=== PATIENT | female | born 1950 | race Caucasian/White ===

== ENCOUNTER 2016-07-17 10:20 | Emergency (ER) | payer BC ==
[~2016-07-17] VITALS: Ht 162.6 cm; Wt 70.3 kg
[2016-07-17 11:02] LABS: BASOPHILS 0.6 % (0.0-2.0); EOSINOPHILS 2.9 % (0.0-3.0); HEMATOCRIT 37.3 % (37.0-47.0); HEMOGLOBIN 12.7 gm/dL (12.0-15.0); LYMPHOCYTES 25.6 % (24.0-44.0); MANUAL DIFF NO; MCHC 34.1 g/dL (28.0-37.0); MCV 96.8 fL (80.0-100.0); MONOCYTES 10.8 % (1.0-8.0); PLATELET COUNT 194 thou/uL (150-400); POLYS 60.1 % (36.0-66.0); RBC 3.86 mil/uL (4.20-5.00); RDW 13.4 % (10.5-14.5)
[2016-07-17] MEDS ORDERED: DILANTIN100 MG PO (11:06)
[2016-07-17] MEDS ORDERED: KEPPRA 500 MG500 M1 PO (11:06)
[2016-07-17] MEDS ORDERED: EFFEXOR XR75 MG PO (11:07)
[2016-07-17] MEDS ORDERED: MOBIC7.5 MG PO (11:07)
[2016-07-17] MEDS ORDERED: VICODIN 5-3001 EACH PO (11:08)
[2016-07-17] MEDS ORDERED: AMBIEN5 MG PO (11:09)
[2016-07-17] MEDS ORDERED: XANAX 0.5 MG0.5 MG PO (11:09)
[2016-07-17 11:13] LABS: CALCIUM 9.3 mg/dL (8.5-10.1); CREATININE 0.7 mg/dL (0.6-1.0); POTASSIUM 4.3 mmol/L (3.5-5.1)
[2016-07-17] MEDS ORDERED: BACTRIM DS TAB1 EACH PO (12:16)
[2016-07-17] MEDS ORDERED: NORCO 5-325 TA1 EACH PO (12:16)
[2016-07-17 12:46] VITALS: BP 138/75
[2016-07-18] MEDS ORDERED: MIRTAZAPINE15 M2 PO (19:59)
== END 2016-07-17 12:52 | disposition home or self-care (01) ==
LOC: ER 10:20
PROVIDERS: Emergency Medicine
DX: L03.032 Cellulitis of left toe (principal); Z88.1 Allergy status to other antibiotic agents; Z88.8 Allergy status to other drugs, medicaments and biological substances

== ENCOUNTER 2016-07-18 08:45 | Inpatient (IN) | payer BC ==
[~2016-07-18] VITALS: Ht 162.6 cm; Wt 68.0 kg
--- NOTE | ~2016-07-18 | O ---
[facility] [place] [address] OPERATIVE REPORT Name: LATOYAABBY Abelardo Room #: 420-P [facility] IN .R.#: [id number] Admission: 07/18/16 Attend Phys: Brielle Adorno Discharge: Date of : 54 Report #: [id number] THIS REPORT FOR: //name// CC: Brielle WHITFIELD WILDER DATE OF SERVICE: 07/21/2016 PRE-PROCEDURE DIAGNOSIS: Left great toe paronychia. POST-PROCEDURE DIAGNOSIS: Left great toe paronychia. PROCEDURE: I and D, left great toe paronychia. SURGEON: Abdullahi Ba M.D. TRANSMISSION SPECIALIST: Oralia Ortega PA-C. ANESTHESIA: Local digital nerve block with 1% lidocaine without epinephrine. FINDINGS: There was purulence in the left great toe. SPECIMENS: Cultures were sent times 2. POST-PROCEDURE CONDITION: Stable. INDICATIONS FOR PROCEDURE: The patient is a 66-year-old female who had an ingrown toenail and had part of her toenail removed last Monday. She has had increasing redness and erythema around the toe and increasing pain and has been admitted secondary to cellulitis and paronychia. She had signs and symptoms consistent with this and was tender at the base of her nail and significant erythema. She has been started on vancomycin with minimal relief of symptoms. After discussion with her, she elected for a bedside I and D of her left great toe. DESCRIPTION OF PROCEDURE: Risks, benefits, alternatives and complications were discussed in detail with the patient, including but not limited to risk of the local anesthesia, risk of need for a more formal surgical procedure if this fails. Informed consent was obtained from the patient and the left great toe was identified. Timeout was performed, properly identifying the patient, procedure and instrumentation. The first webspace and the medial aspect of the toe were then prepped with Betadine and 1 % lidocaine was injected in these areas, performing a digital nerve block. After this, the remainder of the toe was prepped with Betadine and a 15 blade was used to elevate the off the base of the remaining toenail. There was obvious purulence drained from both medial and lateral aspects of the base of the toenail. Cultures of this were [facility] [address] [place] [address] OPERATIVE REPORT Name: ABBY KLEIN Abelardo Room #: 420-P [facility] IN .R.#: [id number] Admission: 07/18/16 Attend Phys: Brielle Adorno Discharge: Date of : 54 Report #: [id number] taken times 2. This area was then thoroughly irrigated with normal saline washes and dressed with 4 x 4s and Coban. The patient tolerated the procedure well. We will continue her on antibiotics and follow up with her cultures. She is to be weightbearing as tolerated on the left lower extremity in a postop shoe. <ELECTRONICALLY SIGNED> By: Abdullahi Ba MD 07/22/16 08 1100 1151 Abdullahi Ba MD /kat
--- NOTE | ~2016-07-18 | HC ---
[facility] [place] [address] CONSULTATION Name: ABBY KLEIN Room #: 420-P [facility] IN M.R.#: [id number] Admission: 07/18/16 Attend Phys: Brielle Adorno Discharge: Date of : 54 Report #: [id number] THIS REPORT FOR: //name// CC: Brielle WILDER DATE OF SERVICE: 07/20/2016 ATTENDING PHYSICIAN: Brielle Adorno MD. REASON FOR CONSULTATION: Persistent big toe cellulitis. HISTORY OF PRESENT ILLNESS: A 66-year-old white woman undergoes ingrown toenail surgery last week. She develops increasing pain, redness of the left big toe, visits to the Emergency Room, fails to respond to oral antibiotic. She is admitted. She developed some pressure type lesion of the foot. Orthopedic and ID consultation requested. 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 The patient developed some weakness, left side and fracture, left knee secondary to a fall. DRUG ALLERGIES: None listed. MEDICATIONS: The patient is on treatment with cefazolin 1 gram IV every 8 hours, meloxicam, venlafaxine, mirtazapine, levetiracetam, enoxaparin, phenytoin, zolpidem tartrate, alprazolam, hydrocodone p.r.n., acetaminophen p.r.n. FAMILY HISTORY: See H and P. REVIEW OF SYSTEMS: As above. PHYSICAL EXAMINATION: GENERAL: Well-developed woman. VITAL SIGNS: Temperature maximum 99.9, pulse 80, respirations 18, BP 107/53. HEENMT: Head normocephalic, atraumatic. Pupils reactive. Mouth: No thrush. No periodontal disease. NECK: Supple. LUNGS: Clear. BREASTS: Deferred. HEART: S1, S2. No gallop. ABDOMEN: Soft, no masses or megaly. EXTREMITIES: Redness of the big toe and point tenderness, left big toe; cellulitic changes, distal left foot status post nail avulsion both big [facility] [address] [place] [address] CONSULTATION Name: ABBY KLEIN Room #: 420-P [facility] IN ..#: [id number] Admission: 07/18/16 Attend Phys: Brielle Adorno Discharge: Date of : 54 Report #: [id number] toenails. LABORATORY DATA: Blood cultures are negative so far, sodium 139, potassium 3.9, BUN 10, creatinine 0.7. WBC 10.6, hemoglobin 10.6, platelets 153,000. ASSESSMENT: 1. Cellulitis, left big toe, status post ingrown left big toenail surgery. 2. History of right brain tumor status post surgery in 2004. 3. Seizure disorder. SUGGESTIONS: Recommend MRSA screen. ESR. Discontinue cefazolin. Vancomycin 1250 mg IV every 12 hours, cefepime 1 gram IV every [address] Adorno, thank you for requesting my suggestions. <ELECTRONICALLY SIGNED> By: Jesus Manuel Gorman MD 07/21/16 1602 1225 1847 Jesus Manuel Gorman MD /nt
[~2016-07-18 08:45] MED LIST: AMBIEN5 MG PO; BACTRIM DS TAB1 EACH PO; DILANTIN100 MG PO; EFFEXOR XR75 MG PO; KEPPRA 500 MG500 M1 PO; MOBIC7.5 MG PO; NORCO 5-325 TA1 EACH PO; VICODIN 5-3001 EACH PO; XANAX 0.5 MG0.5 MG PO
[2016-07-18 08:46] VITALS: BP 136/79
[2016-07-18 10:23] LABS: BASOPHILS 0.3 % (0.0-2.0); EOSINOPHILS 0.9 % (0.0-3.0); HEMATOCRIT 35.5 % (37.0-47.0); HEMOGLOBIN 12.1 gm/dL (12.0-15.0); LYMPHOCYTES 16.8 % (24.0-44.0); MCH 32.9 pg (26.0-34.0); MCHC 34.1 g/dL (28.0-37.0); MCV 96.5 fL (80.0-100.0); MONOCYTES 11.5 % (1.0-8.0); PLATELET COUNT 167 thou/uL (150-400); POLYS 70.5 % (36.0-66.0); RBC 3.68 mil/uL (4.20-5.00); RDW 13.3 % (10.5-14.5); WBC 11.4 thou/uL (4.0-11.0)
[2016-07-18 10:24] LABS: MANUAL DIFF NO
[2016-07-18 10:30] LABS: CREATININE 0.7 mg/dL (0.6-1.0); POTASSIUM 3.9 mmol/L (3.5-5.1)
[2016-07-18 12:01] VITALS: BP 112/59
[2016-07-18 12:19] VITALS: BP 136/77
[2016-07-18 15:44] VITALS: BP 98/59
[2016-07-18 19:40] VITALS: BP 99/47
[2016-07-18] MEDS ORDERED: MIRTAZAPINE15 M2 PO (19:59)
[2016-07-19 01:12] VITALS: BP 102/60
[2016-07-19 05:36] VITALS: BP 128/75
[2016-07-19 06:11] LABS: HEMOGLOBIN 10.6 gm/dL (12.0-15.0); MCH 33.3 pg (26.0-34.0); MCHC 34.2 g/dL (28.0-37.0); MCV 97.5 fL (80.0-100.0); RBC 3.18 mil/uL (4.20-5.00); RDW 13.4 % (10.5-14.5); WBC 10.6 thou/uL (4.0-11.0)
[2016-07-19 06:58] VITALS: BP 120/69
[2016-07-19 16:24] VITALS: BP 127/65
[2016-07-19 19:13] VITALS: BP 107/53
[2016-07-20 08:12] VITALS: BP 124/74
[2016-07-20 16:13] VITALS: BP 116/71
[2016-07-20 20:00] VITALS: BP 115/66
[2016-07-21] VITALS: BP 122/63
[2016-07-21 04:19] VITALS: BP 126/70
[2016-07-21 07:26] VITALS: BP 118/64
[2016-07-21 20:00] VITALS: BP 111/62
[2016-07-22 04:58] VITALS: BP 104/53
[2016-07-22 07:12] VITALS: BP 113/79
[2016-07-22] MEDS ORDERED: KEFLEX500 MG PO (10:45)
[2016-07-22 11:02] VITALS: BP 113/79
== END 2016-07-22 13:44 | disposition home or self-care (01) | DRG 580 ==
LOC: ER 08:45 → EROBS 10:26 → 4E 10:26
PROVIDERS: Hospitalist; Physician Assistant
PROC: 0J9R0ZZ Drainage of Left Foot Subcutaneous Tissue and Fascia, Open Approach (ICD-10-PCS; principal; 2016-07-21)
DX: L03.032 Cellulitis of left toe (principal); L02.612 Cutaneous abscess of left foot; A49.01 Methicillin susceptible Staphylococcus aureus infection, unspecified site; F17.210 Nicotine dependence, cigarettes, uncomplicated; G40.909 Epilepsy, unspecified, not intractable, without status epilepticus; Z79.899 Other long term (current) drug therapy; Z87.81 Personal history of (healed) traumatic fracture; Z88.1 Allergy status to other antibiotic agents; Z88.8 Allergy status to other drugs, medicaments and biological substances
CPT/HCPCS: 10084

== ENCOUNTER 2016-07-25 17:09 | Inpatient (IN) | payer BC ==
[~2016-07-25] VITALS: Ht 162.6 cm; Wt 68.0 kg
--- NOTE | ~2016-07-25 | HC ---
[facility] [place] [address] CONSULTATION Name: ABBY KLEIN Abelardo Room #: 431-P [facility] IN M.R.#: [id number] Admission: 07/25/16 Attend Phys: Chay Combs DO Discharge: Date of : 54 Report #: [id number] THIS REPORT FOR: //name// CC: Chay WILDER DATE OF SERVICE: 07/26/2016 DATE OF ADMISSION: 07/25/2016. DATE OF CONSULTATION: 07/26/2016. ATTENDING PHYSICIAN: Robles Ureña MD REASON FOR CONSULTATION: Antibiotic management. HISTORY OF PRESENT ILLNESS: A 66-year-old white woman recently diagnosed to have Staphylococcus aureus infection, left big toe after some podiatric surgery, underwent an incision and drainage by Dr. Ba. The patient was discharged home on Keflex. She apparently has increasing swelling of the toes and increasing pain as well as some loose stools. She feels a little better today. She is concerned about swelling of the big toe. She relates she did develop some frequent stooling from the Keflex. She has received intravenous vancomycin and now remains on clindamycin IV for the infection of the toe. DRUG ALLERGIES: AZITHROMYCIN, LAMOTRIGINE. MEDICATIONS: The patient is currently on treatment with hydrocodone bitartrate one tablet q.4 h. p.r.n., lactobacillus 1 capsule b.i.d., meloxicam 7.5 mg p.o. daily, clindamycin 600 mg IV t.i.d., acetaminophen 650 q.4 h. p.r.n., ondansetron 4 mg q.4 h. p.r.n., enoxaparin 40 mg at bedtime, phenytoin 100 mg t.i.d., morphine sulfate 2 mg q.4 h. p.r.n., alprazolam 0.5 mg b.i.d. p.r.n., melatonin 10 mg at bedtime p.r.n., mirtazapine 15 mg at bedtime, venlafaxine 300 mg at bedtime, levetiracetam 1250 b.i.d., has received vancomycin single dose yesterday. 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 Status post toenail avulsions or ingrown toenails, both toes; the left became infected with Staphylococcus aureus. PHYSICAL EXAMINATION: GENERAL: A well-developed woman, not toxic looking, in no distress. VITAL SIGNS: Temperature 97.4, pulse 71, respirations 18, and BP 118/82. HEENMT: Within range. NECK: Supple. [facility] [address] [place] [address] CONSULTATION Name: LATOYAABBY Room #: 431-P [facility] IN M.R.#: [id number] Admission: 07/25/16 Attend Phys: Chay Combs DO Discharge: Date of : 54 Report #: [id number] LUNGS: Clear. HEART: S1, S2. No gallop or murmur. BREASTS: Deferred. ABDOMEN: Benign. EXTREMITIES: There is some swelling and redness over the left big toe, no purulence at present time. NEUROLOGIC: Grossly within normal limits. LABORATORY DATA: Sodium 141, potassium 3.8, BUN 18, creatinine 0.7, glucose 90. WBC 8.2; hemoglobin 11.7; and platelets 251,000. ASSESSMENT: 1. Left big toe infection with Staphylococcus aureus. 2. History of right-sided brain tumor and seizure disorder. SUGGESTIONS: Recommend MRI of big toe. Check ESR and CRP. DC Cleocin. Ancef 2 grams IV every [address] Ureña, thank you for requesting my suggestions. <ELECTRONICALLY SIGNED> By: Jesus Manuel Gorman MD 07/27/16 1101 1251 [id number] Jesus Manuel Gormna MD /nt
[~2016-07-25 17:09] MED LIST changes: +KEFLEX500 MG PO; +MIRTAZAPINE15 M2 PO
[2016-07-25 17:12] VITALS: BP 139/83
[2016-07-25 19:02] LABS: ABSOLUTE NEUTROPHILS 5.7 thou/uL (1.4-8.2); BASOPHILS 0.3 % (0.0-2.0); EOSINOPHILS 2.6 % (0.0-3.0); HEMATOCRIT 36.7 % (37.0-47.0); HEMOGLOBIN 12.8 gm/dL (12.0-15.0); MCH 33.1 pg (26.0-34.0); MCHC 34.8 g/dL (28.0-37.0); MCV 94.9 fL (80.0-100.0); MONOCYTES 10.3 % (1.0-8.0); PLATELET COUNT 284 thou/uL (150-400); POLYS 58.8 % (36.0-66.0); RBC 3.87 mil/uL (4.20-5.00); WBC 9.6 thou/uL (4.0-11.0)
[2016-07-25 19:05] LABS: MANUAL DIFF NO
[2016-07-25 19:13] LABS: CALCIUM 10.4 mg/dL (8.5-10.1); CREATININE 0.7 mg/dL (0.6-1.0); POTASSIUM 4.1 mmol/L (3.5-5.1)
[2016-07-25 20:00] VITALS: BP 149/93
[2016-07-25] MEDS ORDERED: MELATONIN10 M2 PO (20:30)
[2016-07-25] MEDS ORDERED: EXCEDRIN CAPLE1 EACH PO (20:31)
[2016-07-26] VITALS: BP 106/61
[2016-07-26 04:00] VITALS: BP 115/66
[2016-07-26 05:51] LABS: HEMATOCRIT 34.3 % (37.0-47.0); HEMOGLOBIN 11.7 gm/dL (12.0-15.0); MCH 32.8 pg (26.0-34.0); MCV 96.5 fL (80.0-100.0); RBC 3.56 mil/uL (4.20-5.00); WBC 8.2 thou/uL (4.0-11.0)
[2016-07-26 06:20] LABS: CREATININE 0.7 mg/dL (0.6-1.0); POTASSIUM 3.8 mmol/L (3.5-5.1)
[2016-07-26 07:54] VITALS: BP 118/82
[2016-07-26 15:24] VITALS: BP 100/44
[2016-07-26 17:40] VITALS: BP 152/84
[2016-07-26 20:00] VITALS: BP 148/87
[2016-07-27 03:46] VITALS: BP 146/66
[2016-07-27 05:11] LABS: HEMATOCRIT 32.2 % (37.0-47.0); MCHC 34.2 g/dL (28.0-37.0); MCV 96.4 fL (80.0-100.0); PLATELET COUNT 231 thou/uL (150-400); RBC 3.34 mil/uL (4.20-5.00); RDW 12.8 % (10.5-14.5); WBC 6.3 thou/uL (4.0-11.0)
[2016-07-27 05:15] LABS: MANUAL DIFF YES
[2016-07-27 05:26] LABS: CALCIUM 8.6 mg/dL (8.5-10.1); CREATININE 0.7 mg/dL (0.6-1.0)
[2016-07-27 06:44] LABS: ABSOLUTE NEUTROPHILS 2.9 thou/uL (1.4-8.2); METAMYELOCYTES 1 %; MYELOCYTES 1 %; NUCLEATED RBCS 2 /100WBC; TOTAL CELL COUNT 100
[2016-07-27 07:51] VITALS: BP 130/81
[2016-07-27 15:55] VITALS: BP 159/77
[2016-07-27 20:00] VITALS: BP 137/84
[2016-07-28 04:00] VITALS: BP 139/91
[2016-07-28 06:00] LABS: HEMATOCRIT 33.8 % (37.0-47.0); HEMOGLOBIN 11.8 gm/dL (12.0-15.0); MCH 33.1 pg (26.0-34.0); MCV 94.5 fL (80.0-100.0); RBC 3.58 mil/uL (4.20-5.00); RDW 12.8 % (10.5-14.5); WBC 7.4 thou/uL (4.0-11.0)
[2016-07-28 06:23] LABS: CALCIUM 8.9 mg/dL (8.5-10.1); CREATININE 0.7 mg/dL (0.6-1.0); POTASSIUM 4.3 mmol/L (3.5-5.1)
[2016-07-28 07:43] VITALS: BP 135/77
[2016-07-28 14:19] VITALS: BP 135/77
[2016-07-28 15:19] VITALS: BP 135/77
== END 2016-07-28 17:18 | disposition home health service (06) | DRG 872 ==
LOC: ER 17:09 → EROBS 18:16 → 4E 18:16
PROVIDERS: Emergency Medicine; Family Medicine
PROC: 02HV33Z Insertion of Infusion Device into Superior Vena Cava, Percutaneous Approach (ICD-10-PCS; principal; 2016-07-27)
DX: A41.9 Sepsis, unspecified organism (principal); M86.8X7 Other osteomyelitis, ankle and foot; L03.032 Cellulitis of left toe; E11.69 Type 2 diabetes mellitus with other specified complication; L08.9 Local infection of the skin and subcutaneous tissue, unspecified; B95.61 Methicillin susceptible Staphylococcus aureus infection as the cause of diseases classified elsewhere; G40.909 Epilepsy, unspecified, not intractable, without status epilepticus; F17.210 Nicotine dependence, cigarettes, uncomplicated; R19.7 Diarrhea, unspecified; Z88.1 Allergy status to other antibiotic agents; Z79.899 Other long term (current) drug therapy
CPT/HCPCS: 10084; 27000

== ENCOUNTER → 2016-11-17 | Outpatient (CLI) | payer BC ==
[~2016-11-17] MED LIST changes: +EXCEDRIN CAPLE1 EACH PO; +MELATONIN10 M2 PO
== END ==
LOC: RAD 09:23
DX: M86.172 Other acute osteomyelitis, left ankle and foot (principal)